=== PATIENT | female | born 1940 | race Caucasian/White ===

== ENCOUNTER 2021-11-26 13:45 | Outpatient (RCR) | payer MEDICARE, BC, SELFPAY ==
--- NOTE | 2021-11-17 12:10 | PT.OPEX ---
PT [facility] Eval PT [facility] Outpatient Eval Start: 11/17/21 12:04 Freq: Status: Active Protocol: Document 11/17/21 12:04 TWILA (Rec: 11/17/21 12:07 TWILA [id number]) E-Signed By Marco Skinner DPT, MS Physical Therapy Outpatient Evaluation Insurance Information Recert Due Date 02/15/22 Insurance Name Medicare B Medical Diagnosis Post-concussion syndrome Treating Diagnosis R posterior canal BPPV, visual impairments and imbalance Subjective Subjective Patient presents to PT with c/ o of chronic positional vertigo, HAs, metal fatigue and eye strain following concussion on 05/21/21. Injury occurred when pt slipped on ice, striking the back of her head on the driveway. Negative CT and CAT scans which was relieving since she had a C5-6 fusion in 1985. Sxs have improved in intensity but consistently becomes dizzy with looking up and supine<> sit transfers. HAs tender to occur after dizziness episodes with pain above B eyes and faith area. Notes fatigue and imbalance since sx onset. Describes sxs as the room spinning with rolling to R, looking up and down, and supine to sit transfers. Several previous episodes of vertigo years ago which improved without rx. Pt was very active prior to her concussion and hopes to return to PLOF but knows this will be a long recovery process. Pt finished paperwork 15 minutes into today?s session. Pain Comments Mild-high dizziness Mild-high BURNETT levels Date of Last Physician Visit 11/03/21 Current Work Status Retired Objective Functional Test Performed & Score 4-Item DGI: 01/19 with mod path deviation, decreased velocity and dizziness with horizontal and vertical head movements Assessment Assessment/Impression Testing revealed signs and symptoms consistent with R posterior canalithiasis BPPV and post-concussion syndrome. Following canalith repositioning maneuver x 2 she presented as resolved with re -testing. Sensory disorganization with balance testing consistent with peripheral vestibular dysfunction. Convergence insufficiency and VOR cancellation deficit also found with testing. All other neurological testing normal. She is a falls risk based on her score on the 4-item Dynamic Gait Index testing. Interventions limited by pt finishing paperwork 15 minutes into today?s session. Recommended pt avoid sustained flex or ext head positions over the next 48 hours. She will benefit from continued skilled PT intervention to address these limitations. Primary Functional Limitations Rolling to R, supine<>sit, looking up and down, reading, busy environments Plan of Care Rehabilitation Potential Excellent Physical Therapy Goals Therapy goals to be completed in 10 weeks: 1. Patient will display resolution of R posterior canalithiasis BPPV symptoms for >5 consecutive days to improve safety with household cleaning activities. 2. Patient will display improved convergence <12 cm to improve tolerance to reading. 3. Patient will display improved 4-item DGI testing > 10/12 to decrease falls risk with dynamic gait tasks. 4. Pt will report >75% improvement on DHI questionnaire to improve tolerance to daily activities. Coordination/Communication With Referral Source Treatment Plan/Direct Interventions Canalith Repositioning,Joint Mobilization,Manual Therapy, Neuromuscular Re-ed, Therapeutic Exercises Frequency/Duration 1-2x per week for as needed for at least 6-10 visits. Patient Will Be Discharged From Therapy Completion of LTG(s),Skills Plateau,Independent w/HEP, Independently Progressing Evaluation Billing Untimed Code Treatment Minutes 25 Complexity Moderate
== END 2022-04-15 14:02 | disposition home or self-care (01) ==
PROVIDERS: PCP Internal Medicine; Visit Provider Internal Medicine
DX: H81.11 Benign paroxysmal vertigo, right ear (principal); F07.81 Postconcussional syndrome; Z51.89 Encounter for other specified aftercare
CPT/HCPCS: 95992; 97162; 97535

== ENCOUNTER 2022-01-05 11:28 | Outpatient (CLI) | payer MEDICARE, BC, SELFPAY ==
--- NOTE | 2022-01-05 11:30 | CRLHL7_ITS ---
For Patients: As a result of the Century Cures Act, medical imaging exams and procedure reports are released immediately into your electronic medical record. You may view this report before your referring provider. If you have questions, please contact your health care provider. BILATERAL SCREENING MAMMOGRAM WITH COMPUTER-AIDED DETECTION TECHNIQUE: CC and MLO views were obtained. These mammographic images have been obtained using full-field digital technique. These mammographic images were interpreted with the benefit of computer-aided detection. COMPARISON FILM: [facility] in [place], unable to obtain. Re-establish baseline. FINDINGS: There are scattered areas of fibroglandular density IMPRESSION: There is no radiographic evidence for malignancy. ASSESSMENT: BI-RADS Category 1: Negative RECOMMENDATION: Routine screening mammogram in 1 year. A lay language report of this examination will be provided to the patient. Alexi Ruiz M.D. Diagnostic/Musculoskeletal Radiologist [email or web address] MESFIN/Dictated by: Alexi Ruiz MD @ 01/06/2022 7:30:00 AM (Electronically Signed)
== END 2022-01-05 11:29 | disposition home or self-care (01) ==
LOC: MAMMO 11:29
PROVIDERS: PCP Internal Medicine; Visit Provider Internal Medicine
DX: Z12.31 Encounter for screening mammogram for malignant neoplasm of breast (principal)
CPT/HCPCS: 77063; 77067

== ENCOUNTER 2022-12-22 09:59 | Outpatient (CLI) | payer MEDICARE, BC, SELFPAY | END 2022-12-22 10:00 | disposition home or self-care (01) | LOC: NFLDREF 12-24 09:22 | PROVIDERS: PCP Internal Medicine; Referring Provider Internal Medicine; Visit Provider Internal Medicine | DX: I10 Essential (primary) hypertension (principal); J45.909 Unspecified asthma, uncomplicated; N89.8 Other specified noninflammatory disorders of vagina; M62.838 Other muscle spasm; M25.511 Pain in right shoulder | CPT/HCPCS: 80048 ==

== ENCOUNTER 2023-01-13 11:10 | Outpatient (CLI) | payer MEDICARE, BC, SELFPAY ==
--- NOTE | 2023-01-13 11:30 | CRLHL7_ITS ---
For Patients: As a result of the Century Cures Act, medical imaging exams and procedure reports are released immediately into your electronic medical record. You may view this report before your referring provider. If you have questions, please contact your health care provider. BILATERAL SCREENING MAMMOGRAM WITH COMPUTER-AIDED DETECTION AND TOMOSYNTHESIS TECHNIQUE: CC and MLO views were obtained. These mammographic images have been obtained using full-field digital technique. These mammographic images were interpreted with the benefit of computer-aided detection. Breast Tomosynthesis was used in this interpretation. COMPARISON FILM: 01/05/22. FINDINGS: There are scattered areas of fibroglandular density IMPRESSION: There is no radiographic evidence for malignancy. ASSESSMENT: BI-RADS Category 1: Negative RECOMMENDATION: Routine screening mammogram in 1 year. A lay language report of this examination will be provided to the patient. Reji Clark M.D. Diagnostic Radiologist [email or web address] MESFIN/Dictated by: Reji Clark MD @ 01/13/2023 12:55:00 PM (Electronically Signed)
== END 2023-01-13 11:11 | disposition home or self-care (01) ==
LOC: MAMMO 11:11
PROVIDERS: PCP Internal Medicine; Visit Provider Internal Medicine
DX: Z12.31 Encounter for screening mammogram for malignant neoplasm of breast (principal)
CPT/HCPCS: 77063; 77067

== ENCOUNTER 2023-04-12 13:03 | Outpatient (CLI) | payer MEDICARE, BC, SELFPAY | END 2023-04-12 13:04 | disposition home or self-care (01) | PROVIDERS: PCP Internal Medicine; Visit Provider Orthopaedic Surgery Sports Medicine | DX: M12.811 Other specific arthropathies, not elsewhere classified, right shoulder (principal); M19.011 Primary osteoarthritis, right shoulder; M75.101 Unspecified rotator cuff tear or rupture of right shoulder, not specified as traumatic; Z01.818 Encounter for other preprocedural examination | CPT/HCPCS: 73200 ==

== ENCOUNTER 2023-05-12 10:20 | Day surgery (SDC) | payer MEDICARE, BC, SELFPAY ==
[2023-05-12] VITALS (25 sets, daily range): BP systolic 118–195; BP diastolic 58–100; PULSE 45–66; RESP 14–18; TEMP 35.9–37; O2SAT 90–100; BMI 23.2
--- NOTE | 2023-05-12 | CRLHL7_ITS ---
For Patients: As a result of the Cures Act, medical imaging exams and procedure reports are released immediately into your electronic medical record. You may view this report before your referring provider. If you have questions, please contact your health care provider. Indication: POST OP RT TSA Technique: Two views right shoulder Findings/Impression: Hardware from a right total shoulder arthroplasty is in satisfactory position. Bone alignment is normal. No sign of acute fracture. Postop changes are within normal limits. Dictated by Reji Clark MD @ 05/13/2023 12:27:55 PM (Electronically Signed)
[2023-05-12] MEDS: OXYCODONE (CR) 10 MG TAB.ER.12H PO (12:00)
[2023-05-12] MEDS: ACETAMINOPHEN 500 MG TABLET 1000 MG PO ×2 (12:00→18:26)
[2023-05-12] MEDS: LACTATED RINGERS 1000 ML 1,000 ML 100 ML IV ×2 (12:15→15:32)
[2023-05-12] MEDS: SODIUM CHLORIDE 0.9 % (FLUSH) 10 ML SYRINGE IVF (12:15)
[2023-05-12] MEDS: MIDAZOLAM HCL 1 MG/ML inj IVP (12:20)
[2023-05-12] MEDS: fentaNYL 100 MCG/2 ML inj IVP (12:20)
--- NOTE | 2023-05-12 12:38 | SUR.PREOP ---
TIME?OUT:?1220 PT/RN/MDA?VERIFICATION?OF?SURGICAL?SITE,?PROCEDURE,?AND?CONSENT OBTAINED?PRIOR?TO?INVASIVE?PROCEDURE.
[2023-05-12] MEDS: CEFAZOLIN 2 GM in 0.9 % SODIUM CHLORIDE Mini-bag 100 ML IVPB (13:54)
[2023-05-12] MEDS: TRANEXAMIC ACID 100 MG/ML INJ 1000 MG IV (13:55)
--- NOTE | 2023-05-12 15:24 | P.NB_ITS ---
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 Images saved: Yes Medications given in 5ml increments after negative aspiration: Ropivicaine %: 0.5 mL: 20 Needle gauge: 22 Decadron (mg): 10 Precedex (mcg): 25 Patient tolerated procedure well: Yes Block Charges Block Charge (with Pro Fee): Brachial Plexus Use of Ultrasound Machine for Block: Yes- US Guidance/pain block
--- NOTE | 2023-05-12 15:25 | W.ANESCHARGE ---
Anesthesia Charges Start Date/Time Anesthesia Start Date: 05/12/23 Anesthesia Start Time: 13:28 Stop Date/Time Anesthesia Stop Date: 05/12/23 Anesthesia Stop Time: 16:30 Summary Extremes of Age - Over 70 or under 1: MDA
--- NOTE | 2023-05-12 16:12 | PM.ORPRC ---
Procedure Note Date of procedure: 05/12/23 Procedure: PREOPERATIVE DIAGNOSIS: 1. Right shoulder osteoarthrosis, primary, severe 2. Right long head of the biceps tendinopathy and tenosynovitis POSTOPERATIVE DIAGNOSIS: 1. Right shoulder osteoarthrosis, primary, severe with fair to poor cuff tissue quality 2. Right long head of the biceps tendinopathy and tenosynovitis PROCEDURE: 1. Right reverse shoulder arthroplasty. 2. Right long head of biceps open tenodesis SURGEON: Jam Christensen MD. CENTER MACHINE SET UP OPERATOR: Zenon Crystal PA-C; Libia Leblanc PA-C - Of note, a skilled circulation assistant was critical for this case to aid in patient positioning, tissue retraction, limb manipulation/positioning, retraction for glenoid exposure, which was challenging, awareness and protection of critical structures, and closure. ANESTHESIA: General plus supraclavicular block EBL: 200 ml IMPLANTS: DJ0 surgical Altivate humeral stem size 6 small shell, short with P2 porous coating vitamin E neutral poly small socket insert RSP glenoid base plate P2 porous coating with 3 perimeter locking screws 32 neutral glenosphere with retaining screw COMPLICATIONS: None evident INDICATIONS: The patient is a pleasant 82-year-old female who has experienced severe right shoulder pain and difficulty with use. Workup included imaging which revealed severe osteoarthrosis along with concern for rotator cuff quality. Physical exam was consistent with associated pain. Given the deformity, the dysfunction, and the pain, and failure of nonoperative management, recommendation was made for surgery. DESCRIPTION OF PROCEDURE: Following a thorough discussion of risks, benefits, and alternatives, consent was obtained and the left shoulder was marked. The patient was brought to the operating room and placed supine on the operating table. Induction of anesthesia was undertaken. 1 g IV Ancef and 1 g tranexamic acid was administered within 1 hr of incision preoperatively. Appropriate time-out was performed identifying proper patient, site, and procedure. The operative extremity was prepped and draped in the appropriate sterile fashion using ChloraPrep after the patient was positioned in the lazy beach chair position with head in neutral alignment and all bony prominences well padded. A longitudinal incision was made for deltopectoral approach. Deltoid was retracted laterally. Cephalic vein was identified and retracted laterally as well. Vein was spared/protected throughout the case. The clavipectoral fascia was identified and divided longitudinally staying lateral to the conjoined tendon / coracoid. The conjoined tendon was protected with a blunt Hohmann. The long head of the biceps tendon was identified and the bicipital sheath released. The upper 1/4 of the pectoralis major was also released from its insertion. The long head of the biceps was tenodesed to the pectoralis major tendon. The remaining proximal tendon tissue was excised. The rotator cuff was inspected and found to have good integrity with the subscapularis but fair integrity with a supraspinatus], and a decision for a reverse shoulder arthroplasty was confirmed. The long head of biceps, of note, was significant flattened, thickened, with abundant tenosynovitis. A subscapularis cuff of tissue was left via tenotomy for later repair with the remaining subscapularis released in a subperiosteal fashion with the Bovie. This was tagged for later repair. The 3 sisters were cauterized. The upper subscapularis was released from the capsule with a curved Nogueira scissors towards the glenoid. The inferior subscapularis was divided from the capsular tissue on its caudal surface with particular caution for the axillary nerve. This was palpated anterior to the subscapularis both prior to and near the finish of the case. Inferior humeral head osteophytes were excised with caution taken throughout the case with regards to the axillary nerve. The humerus was dislocated, and humeral head cut completed. Then a protector plate was applied. We turned our attention to the glenoid. The humerus was retracted posteriorly. The subscap was protected anteriorly and the labrum/long head biceps origin was excised circumferentially. The capsule was released along the anterior and inferior portions of the glenoid cautiously with a Waddell elevator being careful not to penetrate deep. The glenoid had appropriate exposure, and was prepared with the cannulated system with a target of approximately 5-10? of inferior tilt and neutral anteversion (patient had 13 ? of retroversion initially). [Utilizing the match Point 3D printed guide, the guide pin was placed. The 3D printed jig removed and after placing the guide pin, the tap was placed followed by the glenoid reaming. The real base plate was opened, and inserted, and excellent compression/purchase was achieved with the central screw. Peripheral screws were then drilled, measured, and placed. The glenosphere was then placed consistent with the preoperative plan utilizing the above noted glenosphere. After securing the glenosphere with the locking, torque limited screw, attention was turned back to the humerus. It was during this time that we noted increased bleeding compared to expected. No specific vessel could be identified. We elected to pack the wound with Ray tecs and covered the wound. We waited 15 minutes. Upon removing all of the Ray tecs, the bleeding was found to be minimal/under control. We proceeded with the humeral prep. A canal finder was placed followed by various reamers by hand. The real humeral stem was then opened and inserted with excellent metaphyseal fit and stability. Trial poly was placed and the shoulder reduced. Excellent reduction and stability achieved with appropriate tension on the conjoined tendon. At this stage, trial implants were removed, and the real implants inserted and the shoulder reduced. A 3 minute Betadine soak was performed followed by a thorough irrigation with normal saline. Subscapularis was repaired with #1 PDS to the cuff of tissue on the lesser tuberosity. Excellent reapproximation of tissue achieved. Hemostasis was found to be appropriate. The deltopectoral interval was reapproximated with 0 Vicryl, subcutaneous and subcuticular closure was then performed with number 2-0 Vicryl and 4-0 Monocryl, respectively. A skilled circulation assistant was critical for this case to aid in patient positioning, tissue retraction, limb manipulation/positioning, retraction for glenoid exposure, which was challenging, awareness and protection of critical structures, and closure. PLAN: 1. Sling at all times for the operative upper extremity. 2. AROM of elbow, forearm, wrist, and digits as tolerated. 3. PT/OT consults for education and assistance. 4. Social consult for discharge planning. 5. 23 hr perioperative antibiotics. 6. Early ambulation, and SCDs for DVT prophylaxis. 7. Admit to the hospital for the above 8. Analgesics p.r.n.
--- NOTE | 2023-05-12 16:34 | W.ANESCHARGE ---
Anesthesia Charges Start Date/Time Anesthesia Start Date: 05/12/23 Anesthesia Start Time: 13:28 Stop Date/Time Anesthesia Stop Date: 05/12/23 Anesthesia Stop Time: 16:30 Summary Extremes of Age - Over 70 or under 1: DIRECTOR OF ENTERTAINMENT
--- NOTE | 2023-05-12 19:31 | PM.IMCN1 ---
Date of Consult Patient: [facility] Patient Consult date: 05/12/23 Requesting Physician: Orthopedics Primary Care Provider: Glenis Mathur MD Consult Narrative Reason for consult: Postop right shoulder reverse replacement Narrative: Chely Jerez is a 82 year old healthy woman who presents for elective right shoulder replacement. Has struggled with right shoulder pain at least since 2009. In the last 1-2 years have been worse. Underwent elective surgical intervention today. Some concern about possible postop bleeding noted. Notes the he nerve block is still quite active at this time. Review of Systems Status of ROS: Reports: 10 or more systems reviewed and unremarkable except as noted in History and below [facility] Medical History Encounter for long-term (current) use of non-steroidal anti-inflammatories ?Z79.1 - retirement (current) use of non-steroidal anti-inflammatories (NSAID) (ICD-10) Surgical History History of tubal ligation (1980) ?Z98.51 - Tubal ligation status (ICD-10) History of total knee replacement (2016) ?Z96.659 - Presence of unspecified artificial knee joint (ICD-10) History of sleeve gastrectomy (05/07/14) ?Z90.3 - Acquired absence of stomach [part of] (ICD-10) History of repair of hiatal hernia (05/07/14) ?Z98.890 - Other specified postprocedural states (ICD-10) ?Z87.19 - Personal history of other diseases of the digestive system (ICD-10) History of cervical spinal arthrodesis (1985) ?Z98.1 - Arthrodesis status (ICD-10) History of bilateral cataract extraction (2018) ?Z98.41 - Cataract extraction status, right eye (ICD-10) ?Z98.42 - Cataract extraction status, left eye (ICD-10) Social History What is your current living situation?: I presently have a place to live Problems where you live: no known problems In the past 12 months, utilities in danger of being shut off: no In past 12 months, lack of transportation kept you from medical appts, meetings, work, or getting things needed for daily living: no In the past 12 mos, have been you worried that your food would run out before you had money to buy more?: never true In the past 12 mos, the food you bought just didn't last and you didn't have money to buy more?: never true Highest level of school completed/degree received: Bachelor's degree Smoking Status: Never smoker Do you use any of these nicotine containing products: None Second hand tobacco smoke exposure: No How often do you have a drink containing alcohol: monthly or less Alcohol type: wine How many standard drinks containing alcohol do you have on a typical day: 1 or 2 How often do you have six or more drinks on one occasion: Never AUDIT-C Alcohol total score: 1 Non-prescribed substance use: denies use Caffeine: No (decaf) How often does anyone, including family, friends and others, physically hurt you: never How often does anyone, including family, friends and others, insult or talk down to you: never How often does anyone, including family, friends and others, threaten you with harm: never How often does anyone, including family, friends and others, scream or curse at you: never Little interest or pleasure in doing things: not at all Feeling down, depressed, or hopeless: not at all service: No Meds Home Medications and Allergies Home Medications Medication Instructions Recorded Confirmed Type carboxymethylcellulose sodium ophthalmic (eye) 12/04/22 01/01/23 History [Lubricant Eye Drops] cholecalciferol (vitamin D3) 25 25 mcg PO QDAY 12/04/22 05/12/23 History mcg (1,000 unit) capsule lidocaine [Salonpas (lidocaine)] topical 12/04/22 01/01/23 History omega-3 fatty acids [Fish Oil] PO 12/04/22 01/01/23 History acetaminophen 500 mg tablet 500 - 1,500 mg PO Q6H PRN 04/13/23 05/12/23 History (Tylenol Extra Strength) Allergies Allergy/AdvReac Type Severity Reaction Status Date / Time No Known Drug Allergies Allergy Verified 05/12/23 10:43 Exam Narrative: Exam Narrative: Examined patient in her hospital room. Appears comfortable no acute distress. Vision and hearing are grossly normal. Friendly, cooperative. Alert and oriented to self, place, time, situation. Lungs are clear to auscultation. Chest wall excursions are full bilaterally. No wheezing, rhonchi, or rales. No CVA tenderness. Heart tones with regular rhythm, normal S1-S2, without murmur, gallop, rub. Abdomen with active bowel sounds, soft, nontender. Moves right fingers and wrists. Shoulder in a splint. Const: Vital Signs, click to edit/add: Vital Signs - 24 hr 05/12/23 11:12 05/12/23 12:20 05/12/23 12:25 Temperature 98.6 F Pulse Rate 64 50 L 50 L Pulse Rate [Left P ulse Oximeter] Respiratory Rate 16 16 16 Blood Pressure 195/91 H 186/89 H 170/76 H Blood Pressure [Le ft Arm] Pulse Oximetry 95 100 99 Oxygen Delivery Me thod Room Air Nasal Cannula Nasal Cannula Oxygen Flow Rate 2 2 05/12/23 12:30 05/12/23 12:35 05/12/23 12:40 Temperature Pulse Rate 51 L 46 L 45 L Pulse Rate [Left P ulse Oximeter] Respiratory Rate 16 16 16 Blood Pressure 154/77 H 136/68 123/72 Blood Pressure [Le ft Arm] Pulse Oximetry 100 99 100 Oxygen Delivery Me thod Nasal Cannula Nasal Cannula Nasal Cannula Oxygen Flow Rate 2 2 2 05/12/23 13:00 05/12/23 16:30 05/12/23 16:35 Temperature 97 F L Pulse Rate 48 L 66 64 Pulse Rate [Left P ulse Oximeter] Respiratory Rate 16 14 14 Blood Pressure 118/63 143/85 H 139/100 H Blood Pressure [Le ft Arm] Pulse Oximetry 100 93 94 Oxygen Delivery Me thod Room Air Room Air Oxygen Flow Rate 05/12/23 16:40 05/12/23 16:45 05/12/23 16:50 Temperature Pulse Rate 63 60 58 L Pulse Rate [Left P ulse Oximeter] Respiratory Rate 14 14 14 Blood Pressure 133/87 149/87 H 149/89 H Blood Pressure [Le ft Arm] Pulse Oximetry 96 96 93 Oxygen Delivery Me thod Room Air Room Air Room Air Oxygen Flow Rate 05/12/23 16:55 05/12/23 17:00 05/12/23 17:05 Temperature 97 F L 96.6 F L Pulse Rate 56 L 55 L 53 L Pulse Rate [Left P ulse Oximeter] Respiratory Rate 14 14 16 Blood Pressure 154/84 H 154/88 H Blood Pressure [Le ft Arm] 149/77 H Pulse Oximetry 95 95 Oxygen Delivery Me thod Room Air Room Air Oxygen Flow Rate 05/12/23 17:10 05/12/23 17:25 05/12/23 17:40 Temperature 97.0 F L Pulse Rate Pulse Rate [Left P ulse Oximeter] 52 L 46 L 48 L Respiratory Rate 16 16 16 Blood Pressure Blood Pressure [Le ft Arm] 153/77 H 162/82 H 146/76 H Pulse Oximetry 96 95 95 Oxygen Delivery Me thod Room Air Room Air Room Air Oxygen Flow Rate 05/12/23 17:55 05/12/23 18:25 05/12/23 19:00 Temperature 97.1 F L Pulse Rate Pulse Rate [Left P ulse Oximeter] 50 L 48 L 48 L Respiratory Rate 16 16 16 Blood Pressure Blood Pressure [Le ft Arm] 151/58 H 134/65 132/75 Pulse Oximetry 95 96 93 Oxygen Delivery Me thod Room Air Room Air Room Air Oxygen Flow Rate Assessment and Plan Assessment and plan (1) Osteoarthritis of right shoulder: Problem comment: - Severe, [id number] - status post right reverse shoulder replacement 06/08/2023 Status: Acute (2) Right rotator cuff tear arthropathy: Status: Acute (3) Right bundle branch block: Problem comment: noted on outside EKG 02/23 and EKG here 05/01 Status: Acute (4) Essential hypertension: Problem comment: dxed 1999, on medication Status: Acute (5) Asthma: Problem comment: dxed 1995, rare symptoms after respiratory illness Status: Acute Plan 1. Reviewed impression with patient 2. Answered her questions 3. Will recheck hemoglobin in the morning 4. Continue with other supportive efforts
[2023-05-12] MEDS: CEFAZOLIN 1 GM in 0.9 % SODIUM CHLORIDE Mini-bag 100 ML IVPB (20:16)
[2023-05-12] MEDS: SENNOSIDES 1 TAB TABLET 2 TAB PO (20:17)
[2023-05-12 20:26] LABS: Hemoglobin* 12.8 gm/dL (12.0-16.0)
[2023-05-12] MEDS: METOPROLOL SUCCINATE (XL) 25 MG TAB PO (22:40)
[2023-05-12] MEDS: MONTELUKAST 10 MG TABLET PO (22:40)
[2023-05-13] VITALS (9 sets, daily range): BP systolic 70–115; BP diastolic 20–73; PULSE 29–62; RESP 12–18; TEMP 36.3–36.7; O2SAT 91–98
[2023-05-13] MEDS: CEFAZOLIN 1 GM in 0.9 % SODIUM CHLORIDE Mini-bag 100 ML IVPB (03:31)
--- NOTE | 2023-05-13 05:58 | PC.NURSE ---
Shift note: No sensation to affected extremity as of this morning, thus no pain. Right arm is warm, pulses present, no movement yet. Pt is up with SBA, tolerates PO food and fluids with no c/o nausea, is afebrile.
[2023-05-13] MEDS: ACETAMINOPHEN 500 MG TABLET 1000 MG PO ×2 (06:24→13:00)
[2023-05-13 06:45] LABS: Hematocrit 34.7 % (33.0-51.0); Hemoglobin* 11.2 gm/dL (12.0-16.0); Mean Corpuscular HGB Conc 32 gm/dL (32-36); Mean Corpuscular Hemoglobin 34 pg (26-34); Mean Corpuscular Volume 105 fL (80-100); Platelet Count* 115 K/uL (140-440); White Blood Count* 7.21 K/uL (4.50-11.00)
[2023-05-13 06:49] LABS: Slide Review Reflex No
[2023-05-13 06:57] LABS: Potassium* 4.3 mmol/L (3.6-5.1); Sodium* 137 mmol/L (135-149)
[2023-05-13 07:00] LABS: Creatinine* 0.6 mg/dL (0.5-1.5); Est. Creatinine Clearance* 33.29; Estimated Glomerular Filt Rate 90 ml/min
[2023-05-13 07:16] LABS: Blood Urea Nitrogen* 16 mg/dL (7-30)
--- NOTE | 2023-05-13 08:20 | PM.ORPN ---
Subjective Subjective Date Seen: 05/13/23 Principal diagnosis: Status postop day 1 right reverse TSA, long head biceps tenodesis Interval history: Patient reports doing well. No acute events over night. States slept well, no headache this morning. No pain, numb throughout her hand and fingers, no motor function of her hand and fingers. DVT prophylaxis: Ambulation, Bryce socks, bilateral knee high Bryce stockings, SCDs, walking. Denies fevers, chills, aches, N/V, CP, SOB/ERNANDEZ, or lightheadedness. Ortho Exam Narrative Exam Narrative: -Patient appears comfortable in recliner; no apparent acute distress -Alert and oriented times 3 -Operative shoulder mildly swollen; soft, supple tissues; no obvious erythema. Ecchymosis noted, minimal, distal to the bandage. Warmth appropriate -Surgical dressing clean, dry, intact; no obvious drainage, no erythematous streaking peripheral to the bandage -Bilateral calves soft and supple; no significant swelling, edema, tenderness, erythema, discoloration, warmth, or palpable cords -2+ radial pulse, pressure sensation to the lateral shoulder; able to slightly abduct her shoulder; no sensation or motor function to the right upper extremity elbow and below. Const Vital Signs, click to edit/add: Vital Signs - 24 hr 05/12/23 11:12 05/12/23 12:20 05/12/23 12:25 Temperature 98.6 F Pulse Rate 64 50 L 50 L Pulse Rate [Left Pulse Oximeter] Respiratory Rate 16 16 16 Blood Pressure 195/91 H 186/89 H 170/76 H Blood Pressure [Left Arm] Pulse Oximetry 95 100 99 Oxygen Delivery Method Room Air Nasal Cannula Nasal Cannula Oxygen Flow Rate 2 2 05/12/23 12:30 05/12/23 12:35 05/12/23 12:40 Temperature Pulse Rate 51 L 46 L 45 L Pulse Rate [Left Pulse Oximeter] Respiratory Rate 16 16 16 Blood Pressure 154/77 H 136/68 123/72 Blood Pressure [Left Arm] Pulse Oximetry 100 99 100 Oxygen Delivery Method Nasal Cannula Nasal Cannula Nasal Cannula Oxygen Flow Rate 2 2 2 05/12/23 13:00 05/12/23 16:30 05/12/23 16:35 Temperature 97 F L Pulse Rate 48 L 66 64 Pulse Rate [Left Pulse Oximeter] Respiratory Rate 16 14 14 Blood Pressure 118/63 143/85 H 139/100 H Blood Pressure [Left Arm] Pulse Oximetry 100 93 94 Oxygen Delivery Method Room Air Room Air Oxygen Flow Rate 05/12/23 16:40 05/12/23 16:45 05/12/23 16:50 Temperature Pulse Rate 63 60 58 L Pulse Rate [Left Pulse Oximeter] Respiratory Rate 14 14 14 Blood Pressure 133/87 149/87 H 149/89 H Blood Pressure [Left Arm] Pulse Oximetry 96 96 93 Oxygen Delivery Method Room Air Room Air Room Air Oxygen Flow Rate 05/12/23 16:55 05/12/23 17:00 05/12/23 17:05 Temperature 97 F L 96.6 F L Pulse Rate 56 L 55 L 53 L Pulse Rate [Left Pulse Oximeter] Respiratory Rate 14 14 16 Blood Pressure 154/84 H 154/88 H Blood Pressure [Left Arm] 149/77 H Pulse Oximetry 95 95 Oxygen Delivery Method Room Air Room Air Oxygen Flow Rate 05/12/23 17:10 05/12/23 17:25 05/12/23 17:40 Temperature 97.0 F L Pulse Rate Pulse Rate [Left Pulse Oximeter] 52 L 46 L 48 L Respiratory Rate 16 16 16 Blood Pressure Blood Pressure [Left Arm] 153/77 H 162/82 H 146/76 H Pulse Oximetry 96 95 95 Oxygen Delivery Method Room Air Room Air Room Air Oxygen Flow Rate 05/12/23 17:55 05/12/23 18:25 05/12/23 19:00 Temperature 97.1 F L Pulse Rate Pulse Rate [Left Pulse Oximeter] 50 L 48 L 48 L Respiratory Rate 16 16 16 Blood Pressure Blood Pressure [Left Arm] 151/58 H 134/65 132/75 Pulse Oximetry 95 96 93 Oxygen Delivery Method Room Air Room Air Room Air Oxygen Flow Rate 05/12/23 20:00 05/12/23 21:00 05/12/23 22:00 Temperature 97.1 F L 97.8 F 98 F Pulse Rate Pulse Rate [Left Pulse Oximeter] 52 L 48 L 48 L Respiratory Rate 18 18 18 Blood Pressure Blood Pressure [Left Arm] 164/82 H 152/81 H 125/71 Pulse Oximetry 94 90 90 Oxygen Delivery Method Room Air Room Air Room Air Oxygen Flow Rate 2 05/12/23 23:00 05/13/23 03:00 05/13/23 07:15 Temperature 97.4 F L 98.1 F Pulse Rate Pulse Rate [Left Pulse Oximeter] 48 L 62 59 L Respiratory Rate 18 18 Blood Pressure Blood Pressure [Left Arm] 115/58 L 100/64 Pulse Oximetry 91 98 Oxygen Delivery Method Room Air Room Air Oxygen Flow Rate 05/13/23 07:15 Temperature Pulse Rate Pulse Rate [Left Pulse Oximeter] 59 L Respiratory Rate 18 Blood Pressure Blood Pressure [Left Arm] Pulse Oximetry Oxygen Delivery Method Oxygen Flow Rate Assessment and Plan Assessment and plan (1) Status post reverse total arthroplasty of right shoulder: Problem details: And right shoulder long head biceps tenodesis (date of surgery 05/12/2023) Status: Acute Plan - Complete 23 hour perioperative antibiotics. - PT/OT consult for education and assistance. - Social work consult for discharge planning - Prescribed analgesics as needed - she has not needed any pain medicine as she is experiencing no pain - DVT prophylaxis: Ambulation and Bryce socks, bilateral knee high Bryce Hose stockings and SCDs - continue to monitor sensation and motion of the right lower extremity, as well as right upper extremity swelling and ecchymosis. - Anticipation is for discharge to home with daughter 05/13/2023 if the patient remains medically stable, pain is controlled, and they are safe with mobilization.
[2023-05-13] MEDS: SENNOSIDES 1 TAB TABLET 2 TAB PO (08:29)
--- NOTE | 2023-05-13 10:42 | REH.PT ---
Chart reviewed, discussed with OT. Patient with decreased BP and LOC during OT eval, rapid called. Will hold PT eval for now and attempt back when patient more medically appropriate.
[2023-05-13] MEDS: 0.9 % SODIUM CHLORIDE 250 ml 250 ML IV (10:58)
--- NOTE | 2023-05-13 12:46 | W.PM.CROSSCO ---
Subjective Subjective Date Seen: 05/13/23 Principal diagnosis: Status postop day 1 right reverse TSA, long head biceps tenodesis Interval history: Autumn was admitted as a same day surgery patient on 05/12/23 for R reverse shoulder. This morning, she had a presyncopal episode during therapy; rapid response called. Upon my arrival to the room, patient was sitting in chair and staff was obtaining an EKG. Heart rate at that time was in 50s, hypotensive with systolic blood pressure in the 70s. Autumn was awake and answering questions appropriately. She denied pain, dyspnea, or any other concerns for hospitalist staff. She admits taking an extra benazepril yesterday morning prior to surgery given preoperative hypertension. She received her beta-michele last night, it was held this morning secondary to bradycardia. Daughter present, notes that patient has had presyncopal episodes in the past (after not eating regularly, during donating blood, etc). EKG reveals no acute changes from baseline (compared with preoperative EKG). Objective Objective Data Details: GEN: Alert and answering questions appropriately, laying in bedside chair HEENT: EOMIs bilaterally, no scleral icterus CV: Sinus bradycardia R: LCTA bilaterally without concerning wheezing, rales, or rhonchi Ext: wearing sling RUE Skin: No concerning skin lesions or rashes on exposed skin Neuro: Nonfocal Psych: Appropriate Assessment and Plan Assessment and plan (1) Status post reverse total arthroplasty of right shoulder: Problem comment: And right shoulder long head biceps tenodesis (date of surgery 05/12/2023) Status: Acute (2) Pre-syncope: Problem comment: - likely iatrogenic (BB, anesthesia) - feeling better after rest - will repeat Orthostatic vital signs, reassess this afternoon; if back to baseline will d/c home with close PCP f/u Status: Acute Plan - per above
[2023-05-13 13:58] LABS: Hemoglobin* 12.2 gm/dL (12.0-16.0)
--- NOTE | 2023-05-13 15:05 | PC.NURSE ---
discharge. pt has been very pleasant. no pain arm was numb but she could start to move her fingers at discharge,. when working with PT/OT this am. after walking back from the BR and after standing for 2 minutes getting dressing. she because light headed. she was sat in the chair and nurse was called. when I entered the room/. OT was taking a BP with the pt sitting in the chair. BP 74/42. she was dizzy and lightheaded, pt was lowered flat in the chair still complained of no feeling well. rapid respond was called pt hr was 29 at the lowest. tele was started, EKG was done. SL sadly went bad and after 3 tries md said it was ok to leave out. Right arm is warm, pulses present,cryo cuff to the shoulder shoulder is C/D/I. Pt is up with SBA, tolerates PO food and fluids with no c/o nausea, is afebrile. ortho bp done 115/64 p 51 150/80 P 60 131/75 p 65 md was updated. pt was d/c went over discharge packet.
== END 2023-05-13 15:00 | disposition home or self-care (01) ==
LOC: OR 10:22 → MEDSURG 10:24
PROVIDERS: Internal Medicine; Physician Assistant Surgical; PCP Internal Medicine; Visit Provider Orthopaedic Surgery Sports Medicine
PROC: 0RRJ0JZ Replacement of Right Shoulder Joint with Synthetic Substitute, Open Approach (ICD-10-PCS; CPT 23472; principal; 2023-05-12 11:45)
DX: M19.011 Primary osteoarthritis, right shoulder (principal); M75.21 Bicipital tendinitis, right shoulder; G89.18 Other acute postprocedural pain; R55 Syncope and collapse; R00.1 Bradycardia, unspecified; I45.10 Unspecified right bundle-branch block; I10 Essential (primary) hypertension; J45.909 Unspecified asthma, uncomplicated
CPT/HCPCS: 23472; 23430; 01638; 36415; 64415; 73030; 76942; 82565; 84132; 84295; 84520; 85018; 85027; 93005; 97110; 97162; 97165; 97530; 97535; 99100; A9270; C1713; C1776; J0690; J1100; J2250; J2405; J2704; J2710; J2795; J3010; J7050; J7120

== ENCOUNTER 2023-07-26 13:30 | Outpatient (RCR) | payer MEDICARE, BC, SELFPAY ==
--- NOTE | 2023-04-13 19:07 | OT.OPGNE ---
OT Outpatient General/Neuro Eval OT Outpatient General/Neuro Eval Start: 04/13/23 18:49 Freq: Status: Active Protocol: Document 04/13/23 18:53 SMW (Rec: 04/13/23 19:04 SMW Laptop) E-signed By Aliyah Wisdom OT OT Outpatient Evaluation Details Type Type Eval Complexity Low Insurance Information Insurance Information Insurance Information Medicare B Outpatient History/Precautions Medical/Functional History Medical History Reviewed Yes Prior Level of Function/Mobility Independent in ADLs, IADLS and mobility without an AD. 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 I hope this goes as well. Assessment Assessment Assessment The patient is a 82 year old female referred for a pre-op for a RTSA. Surgery scheduled for 05/12/23. The patient lives with her sister in a handicapped accessible home. 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 She will have assistance at home from daughters for 2 weeks and sister as long as needed. She was educated on post op exercises, sling management, therapy progression, one handed dressing techniques. She asked excellent questions. OT anticipates that the patient will do well post operatively. Occupational Therapy Treatment Plan - OP Goals Goals Within one session, the patient will.. 1. verbalize understanding of post op exercises, sling management, therapy progression and one handed dressing techniques. goal met. Progress met Certification Certification I Certify That: Therapy Services Provided, Therapy Plan Established, Therapy Plan Reviewed Recertification Information Recertification Information Initial Certification Date 04/13/23 Recertification Start Date 04/13/23 Provider Signature Shows Agreement With POC & Medical Necessity Physician Comment/Change Comment or Changes Physician NPI Number #
--- NOTE | 2023-05-26 11:50 | PT.OPEX ---
PT [place] Outpatient Eval PT [facility] Outpatient Eval Start: 05/25/23 08:29 Freq: Status: Active Protocol: Document 05/25/23 12:42 NLR (Rec: 05/26/23 09:32 NLR [id number]) E-signed By Shahana Amezcua DPT Physical Therapy Outpatient Evaluation Insurance Information Insurance Name Medicare B,[employer] Medical Diagnosis M75.101 right shoulder rotator cuff tear M12.811 right shoulder arthropathy M19.011 right shoulder primary osteoarthritis Z96.611 right shoulder artificial joint Treating Diagnosis M25.611 Stiffness right shoulder M25.511 Pain right shoulder Referring MD Jam Christensen MD Subjective Subjective Overall feeling quite good with minimal pain as noted below. She is taking the sling off intermittently at home when resting in the recliner. She has not yet been able to resume driving, and is having some difficulty managing cutting food and writing as she is right hand dominant. Her biggest concern at this point is the edema she is having in her right arm when dependent. She was told to wear SIM stockings but has been quite active and is unable to get them on/off by herself. Her daughter Tracie ( accompanying her today) has been staying with her to help but will be leaving this week. She notes she also has some longstanding neck issues, R>L which has prevented her from sleeping on a pillow for quite some time. She is currently sleeping in a recliner. Pain Comments 0-1/10; she has been taking Tylenol and very sparsely Oxycodone. Overall the pain is quite managed except with movement which she is starting today. Sometimes it feels sore or tired. She did have two electric shocks this morning when out of sling that went away quickly. She uses ice several times a day. 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 She lives in an accessible home with a basement with a housemate named Loki who can help her if she needs it. She is typically very active. Preferred Name TORIN Precautions Treatment Precautions/Contraindications s/p right reverse TSA and long head biceps tenodesis 05/12/23. Weight Bearing Status Full Weight Bearing Therapy Limitations/Systems Review Not Limited Objective Range of Motion R elbow AROM 10-120, R wrist WFL R shoulder PROM Flexion 0-100, Abduction 0-85 L shoulder, elbow and wrist WFL Strength R shoulder and elbow not tested; R wrist/hand WFL L shoulder, wrist and hand WFL Swelling Moderate non-pitting edema from mid upper arm to wrist and mild into fingers at this time. Patient reports this fluctuates and is worse when arm is down. Application of size D tubigrip sleeve from mid upper arm to wrist with tubigrip doubled at wrist back to elbow. Balance & Gait Independent Posture Mild FHON, forward rounded shoulders (history of neck pain) Other/Pertinent Objective HAND DOMINANCE: Right ROM: R elbow AROM 10-120, R wrist WFL, R shoulder PROM Flexion 0-100, AbductiON EDEMA: Moderate non-pitting edema from mid upper arm to wrist and mild into fingers at this time. Patient reports this fluctuates and is worse when arm is down. Application of size D tubigrip sleeve from mid upper arm to wrist with tubigrip doubled at wrist back to elbow. POSTURE: Mild FHON, forward rounded shoulders (history of neck pain) Functional Test Performed & Score QUICKDASH 05/25/23 (score 38) = 86.4% right arm disability Assessment Assessment/Impression Torin is a very pleasant 82 year old very active retiree with longstanding right shoulder issues now one week status post right reverse TSA and long head biceps tenodesis 05/12/[address] Christensen. She is overall doing very well with general mobility, she is still sleeping in a recliner partially also due to right sided neck pain and inability to use a normal pillow in bed, she has a shoulder sling and is currently limited to PROM at shoulder, A to AAROM at elbow and AROM at wrist and hand. She is having very little pain but shoulder gets sore and tired, biggest complaint is right shoulder dependent edema. Patient is worried about lymphedema, however she has not had any lymph node removal and at this point edema is likely inflammatory healing compounded by gravity. Will watch this closely. She tolerates ROM exercises well, will begin PT to progress ROM and begin strengthening when able based on surgical protocol. Skilled PT is appropriate for stated goals. Patient and her daughter Tracie verbalize agreement with this POC. Primary Functional Limitations Unable to drive, unable to reach into cabinets at home, difficulty sleeping in bed, difficulty cutting food and writing. Plan of Care Rehabilitation Potential Excellent Rehabilitation Potential Comments Patient is in otherwise good health and is motivated to improve. Physical Therapy Goals 1. Patient will be independent with home exercise program as instructed, modified and progressed by physical therapist in order to be independently actively participating in their rehabilitation and return to prior level of function. Goal to be achieved by 08/23/23. 2. Patient will demonstrate improved score on QUICKDASH to [20] % impairment, demonstrating clinically significant improvement in self-reported level of function to allow patient to safely achieve pre-onset level of function. To be achieved by 08/23/23. 3. Patient will lift [3] # weight through at least 150 degrees of active shoulder flexion and abduction above head height safely and independently without compensation or significant increase in pain over 2/10 allowing for reaching and grasping objects from elevated surfaces to allow typical home activities such as cooking and dusting. To be achieved by 08/23/23. Coordination/Communication With Referral Source Treatment Plan/Direct Interventions Compression Garments,Joint Mobilization,Manual Therapy, Neuromuscular Re-ed,Self-Care/ Home Management,Therapeutic Activities,Therapeutic Exercises Frequency/Duration 1-2 visits per week for 10-12 weeks. Evaluation Billing Untimed Code Treatment Minutes 20 PT Eval No Charge No Complexity Low Certification Information Initial Certification Date 05/25/23 Ending Certification Date 08/23/23 Provider Signature Shows Agreement With POC & Medical Necessity Physician Signature & Date Requested Please Sign/Date Here Physician Comment/Change : Physician NPI Number #[id number]
== END 2023-09-30 14:25 | disposition home or self-care (01) ==
PROVIDERS: PCP Internal Medicine; Visit Provider Orthopaedic Surgery Sports Medicine
DX: M19.011 Primary osteoarthritis, right shoulder (principal); Z96.611 Presence of right artificial shoulder joint; Z51.89 Encounter for other specified aftercare
CPT/HCPCS: 80048; 97018; 97110; 97161; 97165; 97535

== ENCOUNTER 2023-11-16 13:20 | Outpatient (CLI) | payer MEDICARE, BC, SELFPAY | END 2023-11-16 13:21 | disposition home or self-care (01) | PROVIDERS: PCP Internal Medicine; Visit Provider Internal Medicine | DX: R53.83 Other fatigue (principal); R07.89 Other chest pain; R11.0 Nausea | CPT/HCPCS: 80053; 84443 ==

== ENCOUNTER 2023-11-30 12:46 | Outpatient (CLI) | payer MEDICARE, BC, SELFPAY ==
[2023-11-30 13:56] VITALS: BP 154/82; PULSE 75; RESP 16
--- NOTE | 2023-11-30 15:39 | P.STN_ITS ---
Stress Test Note Date Date Seen: 11/30/23 Date of test: 11/30/23 Providers Primary care provider: Glneis Mathur Stress test physician: Manan Glover Stress Test Note Stress test ordered: Stress Echo Indication for test: Chest pain Results discussion: Patient is a very nice 83-year-old female presents for the above test after discussion the risks benefits and side effects she would like to proceed. Cardiac stress test medical history form is reviewed. Pretest EKG shows normal sinus rhythm, with the evidence of a right bundle-branch block. Ventricular rate 60, rhythm is sinus with occasional PVCs. Blood pressure is 150 on 82. Standard Chava protocol is done over a time course of 3 minutes, she shaved a metabolic workload of 4.4 Mets. Test is terminated because of fatigue, her maximum heart rate was 158 which is 135% of the maximum, she had some mild shortness of breath. And overall felt fatigued, no appreciable ST wave changes are suggestive of ischemia, there is no dysrhythmias, she recovered normally. Impression: Negative electrographic portion of stress echo, conditioning was felt to be poor Follow up suggested: Await echo images these will be reviewed by Cardiology, clinical correlation w ith his be needed. She left this testing facility in good condition.
== END 2023-11-30 13:57 | disposition home or self-care (01) ==
LOC: STRESS 12:46
PROVIDERS: PCP Internal Medicine; Visit Provider Internal Medicine
DX: R07.89 Other chest pain (principal)
CPT/HCPCS: 93016; 93325; 93351

== ENCOUNTER 2024-02-23 14:45 | Outpatient (RCR) | payer MEDICARE, BC, SELFPAY ==
--- NOTE | 2024-01-05 15:51 | PT.OPEX ---
PT Rebecca Outpatient Eval PT [facility] Outpatient Eval Start: 01/05/24 09:32 Freq: Status: Active Protocol: Document 01/05/24 09:33 MLS (Rec: 01/05/24 15:48 MLS [id number]) E-signed By Tati Bashir DPT Physical Therapy Outpatient Evaluation Insurance Information Recert Due Date 04/03/24 Insurance Name Medicare B,[employer] Insurance Information/Comments Patient 15 minutes late to eval Medical Diagnosis M47.816 spondylosis, without radiculopathy, lumbar region M76.891 other specified enthesopathies of lower limb, right Tendonitis involving right hip abductors history of right TKA (2016, Evin Arauz MD, [facility]). Treating Diagnosis Knee strengthening Right hip stretching and strengthening Imaging Report Information Per chart: Xray right hip: show only mild right hip osteoarthritic/ joint space narrowing. Minimal osteophytosis Xray lumbar spine: severe multilevel lumbar degenerative disc disease. Most notable at L3-4 and L5-S1, although multiple levels show osteophyte formation and disc height narrowing. Referring MD Dr. Vin High Preferred Name Autumn High Patient is a 83 year old female who presents to physical therapy with signs and symptoms consistent with lumbar pain, right leg pain, right knee pain and tendonitis of right hip abductors. She states that she is having some right knee, right hip and low back pain. She states that she started having pain in her knee on November 16 when she was running up her stairs. She states that she heard a clicking. She states that driving irritated her knee more. 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 She reports that the driving irritated that as well. She reports that she has a lot of pain getting out of chair and on and off commode. She states that she had a right knee replacement in 2016 and she just had xrays and everything looks good in her knee. She reports that she wears a brace on her knee as needed. She reports that she has a burning pain in her knee . She states that for exercise she gardens, weeds, digs holds, and walks. 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 Aggravating factors include: moving from sit to stand, walking (long distances), standing for long periods of time. Alleviating factors include: Tylenol. 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 She leaves on January 17 for [place] for 2 weeks. Patient would like to have less pain through physical therapy sessions. Pain Comments Today: 3/10 (low back, hip and knee) on a 0-10 pain scale with 10 = extreme pain Current Work Status Retired Precautions Weight Bearing Status Full Weight Bearing Therapy Limitations/Systems Review Not Limited Objective Other/Pertinent Objective KNEE ROM Extension/Flexion: 0-120 B HIP ROM Left: WNL Right: Flexion: 100 Internal Rotation: 25 External Rotation 25 Abduction: 30 LLE MMT: Hip flexion: R 4/5 L 4/5 Hip abduction: R 4/5 L 4/5 Hip extension: R 4/5 L 4/5 Knee flexion: R 4/5 L 4/5 Knee extension: R 4/5 L 4/5 SPECIAL TEST Knee is stable to varus/valgus stress at 0 and 30 Rosario Compression: negative B Hip quadrant test: negative B KOLBY: positive on R for pain FADIR: positive on R for pain Trochanteric Bursitis Test: negative B Straight leg raise: negative Mild Trendelenburg sign JOINT MOBILITY/PALPATION moderately tender to medial knee retinaculum moderately tender to greater troch and severely tender to hip abductor insertion TX: Access Code: [email or web address] URL: [email or web address] Date: 01/05/2024 Prepared by: Tati Bashir Exercises - Supine Lower Trunk Rotation - 1 x daily - 7 x weekly - 3 sets - 10 reps - Supine Figure 4 Piriformis Stretch - 1 x daily - 7 x weekly - 3 sets - 10 reps Functional Test Performed & Score 37/80 A score increase of 6 points shows a significant improvement in lower extremity function. Assessment Assessment/Impression Pt is a 83 year old female who presents with concerns of lumbar pain, right leg pain, right knee pain and tendonitis of right hip abductors. Patient also has notable objective findings including limited ROM, tenderness to palpation, and decreased strength which are also likely contributing to the problem. Patient is a good candidate for skilled therapy to target deficits described above. Skilled PT intervention is necessary for use of therapeutic exercise manual therapy, neuromuscular re- education, gait training, and therapeutic activity. Functional impairments include difficulty with: standing, exercising, walking and ADLs. See appropriate sections of PT eval for complete list of goals and POC. D/C plan and criteria is for pt to achieve the goals as listed below or until max rehab potential is met. Pt was agreeable with plan of care and goals established. Primary Functional Limitations standing walking exercising ADLs Plan of Care Rehabilitation Potential Good Physical Therapy Goals Within 10-12 weeks: 1.Pt will demonstrate independence in performance of home exercise program with the use of video and/or handouts in order to optimize functional mobility and reduce risk for re-injury. 2.Pt will demonstrate consistent HEP compliance to ensure progress in reaching established goals during course of care. 3.Patient will be able to grocery shop for 30 minutes without pain. 4.Patient will report pain levels <2/10 with all activities in order to improve functional mobility at home, work and during functional leisure activities. 5.Patient is able to sleep without waking more than one time due to pain in a 6-8 hour time frame. 6.Patient will be able to walk up to one mile without pain. 7.Patient will be able to bend and lift household items from the floor to shoulder height to perform ADLs without pain. 8.Pt will be able to ascend/ descend 1 flight of stairs in order to perform ADLs pain free. 9.Pt will exhibit 5 pt improvement in Lower Extremity Functional Scale to demonstrate functional improvement and progress towards goals Coordination/Communication With Referral Source Treatment Plan/Direct Interventions Joint Mobilization,Manual Therapy,Neuromuscular Re-ed, Therapeutic Activities, Therapeutic Exercises Patient Will Be Discharged From Therapy Independently Progressing Evaluation Billing Untimed Code Treatment Minutes 30 Complexity Low Certification Information Provider Signature Required Yes Provider Signature Shows Agreement With POC & Medical Necessity Physician NPI Number Write NPI# Here Physician Comment/Change : Physician Signature & Date Requested Please Sign/Date Here
== END 2024-06-22 23:59 | disposition home or self-care (01) ==
PROVIDERS: PCP Internal Medicine; Visit Provider Orthopaedic Surgery Sports Medicine
DX: M47.816 Spondylosis without myelopathy or radiculopathy, lumbar region (principal); M76.891 Other specified enthesopathies of right lower limb, excluding foot; Z51.89 Encounter for other specified aftercare
CPT/HCPCS: 97110; 97112; 97140; 97161

== ENCOUNTER 2024-02-25 14:47 | Outpatient (CLI) | payer MEDICARE, BC, SELFPAY ==
--- NOTE | 2024-02-25 14:40 | CRLHL7_ITS ---
For Patients: As a result of the Century Cures Act, medical imaging exams and procedure reports are released immediately into your electronic medical record. You may view this report before your referring provider. If you have questions, please contact your health care provider. BILATERAL SCREENING MAMMOGRAM WITH COMPUTER-AIDED DETECTION AND TOMOSYNTHESIS TECHNIQUE: CC and MLO views were obtained. These mammographic images have been obtained using full-field digital technique. These mammographic images were interpreted with the benefit of computer-aided detection. Breast Tomosynthesis was used in this interpretation. COMPARISON FILM: 01/13/23, 01/05/22. FINDINGS: There are scattered areas of fibroglandular density. IMPRESSION: There is no radiographic evidence for malignancy. ASSESSMENT: BI-RADS Category 1: Negative RECOMMENDATION: Routine screening mammogram in 1 year. A lay language report of this examination will be provided to the patient. Reji Clark M.D. Diagnostic Radiologist [email or web address] SP/Dictated by: Reji Clark MD @ 03/02/2024 11:05:00 AM (Electronically Signed)
== END 2024-02-25 14:48 | disposition home or self-care (01) ==
LOC: MAMMO 14:48
PROVIDERS: PCP Internal Medicine; Visit Provider Internal Medicine
DX: Z12.31 Encounter for screening mammogram for malignant neoplasm of breast (principal)
CPT/HCPCS: 77063; 77067

== ENCOUNTER 2024-12-29 13:18 | Outpatient (CLI) | payer MEDICARE, SELFPAY | END 2024-12-29 13:19 | disposition home or self-care (01) | LOC: NFLDREF 01-02 16:54 | PROVIDERS: PCP Internal Medicine; Referring Provider Internal Medicine; Visit Provider Internal Medicine | DX: I10 Essential (primary) hypertension (principal) | CPT/HCPCS: 80048 ==